=== PATIENT | male | born 1970 | race Caucasian/White ===

== ENCOUNTER → 2016-03-27 | Outpatient (CLI) | payer BC ==
[~2016-03-27] MED LIST: AMOXICILLIN 8751 TAB PO; CEPHALEXIN500 M1 PO; CITALOPRAM20 MG PO; CUBICIN 500MG500 MG IV; FLONASE NASAL S16 GM NS; LEVAQUIN 750MG750 M1 PO; MAXZIDE-25MG TA1 TAB PO; MOTRIN 400400 MG/TAB PO; MULTI VITAMINS1 TAB PO; NORCO 325 MG-51 TAB PO; SANTYL30 TP; TRIAMTERENE/HCT1 TAB PO; TURMERIC500 MG; ZESTRIL40 MG PO; tumeric
== END ==
LOC: WCC 08:46
DX: L89.892 Pressure ulcer of other site, stage 2 (principal)
CPT/HCPCS: 27510; A6197

== ENCOUNTER 2016-04-02 14:16 | Inpatient (IN) | payer BC ==
[~2016-04-02] VITALS: Ht 208.3 cm; Wt 227.2 kg
[~2016-04-02 14:16] MED LIST changes: -CUBICIN 500MG500 MG IV; -FLONASE NASAL S16 GM NS; -LEVAQUIN 750MG750 M1 PO; -MAXZIDE-25MG TA1 TAB PO; -MOTRIN 400400 MG/TAB PO; -MULTI VITAMINS1 TAB PO; -NORCO 325 MG-51 TAB PO; -SANTYL30 TP; -TURMERIC500 MG; -tumeric
[2016-04-02 15:10] VITALS: BP 109/59; PULSE 105; TEMP 98.9
[2016-04-02] MEDS ORDERED: MAXZIDE-25MG TA1 TAB PO (15:18)
[2016-04-02] MEDS ORDERED: MULTI VITAMINS1 TAB PO (15:19)
[2016-04-02] MEDS ORDERED: MOTRIN 400400 MG/TAB PO (15:19)
[2016-04-02] MEDS ORDERED: FLONASE NASAL S16 GM NS (15:19)
[2016-04-02] MEDS ORDERED: SANTYL30 TP (15:22)
[2016-04-02] MEDS ORDERED: tumeric (15:22)
[2016-04-02 17:28] LABS: BASO # 0.1 (0.0-0.2); BASO % 0.4 % (0.0-2.0); EOS # 0.2 (0.0-0.7); EOS % 1.4 % (0-4.0); GRAN # 10.9 (1.4-6.5); GRAN % 74.1 % (42.2-75.2); HEMATOCRIT 39.6 % (42.0-52.0); HEMOGLOBIN 13.4 g/dl (13.5-18.0); LYMPH # 1.9 (1.2-3.4); LYMPH % 12.9 % (20.0-51.0); MEAN CELL VOLUME 87 fl (80.0-100.0); MEAN CORPUSCULAR HEMOGLOBIN 29 pg (27.0-31.0); MEAN CORPUSCULAR HGB CONC 34 g/dl (33.0-37.0); MEAN PLATELET VOLUME 9.3 fl (7.4-10.4); MONO # 1.6 (0.1-0.6); MONO % 10.5 % (1.7-9.3); PLATELET COUNT 294 K/mm3 (130-400); RED BLOOD COUNT 4.58 M/mm3 (4.20-5.60); REDCELL DISTRIBUTION WIDTH-CV 13.5 % (11.5-14.5); WHITE BLOOD COUNT 14.8 K/mm3 (4.8-10.8)
[2016-04-02 17:41] LABS: ADJUSTED CALCIUM 9.1 mg/dL (8.4-10.2); ALBUMIN 4.1 gm/dL (3.5-5.0); BILIRUBIN,TOTAL 1.1 mg/dL (0.0-1.0); CALCIUM 9.2 mg/dL (8.4-10.2); CREATININE, serum 0.93 mg/dL (0.66-1.25); TOTAL PROTEIN 8.5 gm/dL (6.4-8.2)
[2016-04-02 18:05] VITALS: BP 114/69; PULSE 100; TEMP 99.2
[2016-04-02 21:15] VITALS: BP 127/69; BP 136/63; PULSE 76; PULSE 82; TEMP 98
[2016-04-03 02:16] VITALS: BP 105/64; PULSE 83; TEMP 98.2
[2016-04-03 05:42] VITALS: BP 124/57; PULSE 80; TEMP 98.2
[2016-04-03 06:14] LABS: PH 5 (5-8); SQUAMOUS EPITHELIAL 0-2 /hpf; URINE APPEARANCE Clear; URINE BACTERIA None Seen /hpf; URINE BILIRUBIN Negative (NEGATIVE); URINE BLOOD Negative (NEGATIVE); URINE COLOR Yellow; URINE GLUCOSE Negative (NEGATIVE); URINE KETONE Negative (NEGATIVE); URINE RBC 0-2 /hpf; URINE UROBILINOGEN Negative (NEGATIVE); URINE WBC 0-2 /hpf
[2016-04-03 07:50] LABS: C-REACTIVE PROTEIN 7.7 mg/dL (0.0-0.9); CALCIUM 8.8 mg/dL (8.4-10.2); CREATININE, serum 0.91 mg/dL (0.66-1.25); POTASSIUM 3.6 mmol/L (3.4-5.0)
[2016-04-03 08:36] LABS: BASO # 0.1 (0.0-0.2); BASO % 0.6 % (0.0-2.0); EOS # 0.4 (0.0-0.7); EOS % 4.2 % (0-4.0); GRAN # 6.3 (1.4-6.5); GRAN % 63.8 % (42.2-75.2); HEMATOCRIT 37.4 % (42.0-52.0); HEMOGLOBIN 12.3 g/dl (13.5-18.0); LYMPH # 1.7 (1.2-3.4); LYMPH % 17.5 % (20.0-51.0); MEAN CELL VOLUME 88 fl (80.0-100.0); MEAN CORPUSCULAR HEMOGLOBIN 29 pg (27.0-31.0); MEAN CORPUSCULAR HGB CONC 33 g/dl (33.0-37.0); MEAN PLATELET VOLUME 9.4 fl (7.4-10.4); MONO # 1.3 (0.1-0.6); PLATELET COUNT 314 K/mm3 (130-400); RED BLOOD COUNT 4.26 M/mm3 (4.20-5.60); REDCELL DISTRIBUTION WIDTH-CV 13.6 % (11.5-14.5); WHITE BLOOD COUNT 9.8 K/mm3 (4.8-10.8)
[2016-04-03] MEDS ORDERED: TURMERIC500 MG (08:39)
[2016-04-03 09:27] VITALS: BP 154/62; PULSE 84; TEMP 98.5
[2016-04-03 13:49] VITALS: BP 131/66; PULSE 83; TEMP 98.8
[2016-04-03] MEDS ORDERED: CUBICIN 500MG500 MG IV (16:36)
== END 2016-04-03 17:30 | disposition home or self-care (01) | DRG 872 ==
LOC: MEDICAL 14:16 → SURG 14:45
PROVIDERS: Physician Assistant
PROC: 02HV33Z Insertion of Infusion Device into Superior Vena Cava, Percutaneous Approach (ICD-10-PCS; principal; 2016-04-03)
DX: A41.9 Sepsis, unspecified organism (principal); Z68.43 Body mass index [BMI] 50.0-59.9, adult; M86.8X7 Other osteomyelitis, ankle and foot; L89.892 Pressure ulcer of other site, stage 2; I10 Essential (primary) hypertension; E66.01 Morbid (severe) obesity due to excess calories; L03.032 Cellulitis of left toe; G62.9 Polyneuropathy, unspecified; Z87.891 Personal history of nicotine dependence
CPT/HCPCS: 99223-AI; 99239; C1751; G0463; J0878; J1650; J2543; J3370; J7030; J7040; J7050

== ENCOUNTER → 2016-04-02 | Outpatient (CLI) | payer BC | LOC: WCC 13:38 | DX: L03.032 Cellulitis of left toe (principal); L89.892 Pressure ulcer of other site, stage 2 | CPT/HCPCS: G0463 ==

== ENCOUNTER 2016-04-07 11:43 | Day surgery (SDC) | payer BC ==
[~2016-04-07] VITALS: Ht 208.3 cm; Wt 240.5 kg
[~2016-04-07 11:43] MED LIST changes: +CUBICIN 500MG500 MG IV; +FLONASE NASAL S16 GM NS; +MAXZIDE-25MG TA1 TAB PO; +MOTRIN 400400 MG/TAB PO; +MULTI VITAMINS1 TAB PO; +SANTYL30 TP; +TURMERIC500 MG; +tumeric
[2016-04-07] MEDS ORDERED: CUBICIN 500MG500 MG IV (13:13)
[2016-04-07 13:21] VITALS: BP 121/55; PULSE 81; TEMP 98.1
[2016-04-07 16:40] VITALS: BP 102/48; PULSE 71; TEMP 98
[2016-04-07 16:55] VITALS: BP 112/57; PULSE 70
[2016-04-07 17:10] VITALS: BP 106/59; PULSE 79
[2016-04-07 17:25] VITALS: BP 113/56; PULSE 90
[2016-04-07] MEDS ORDERED: NORCO 325 MG-51 TAB PO (17:48)
== END 2016-04-07 18:15 | disposition home or self-care (01) ==
LOC: SDCO 11:43 → MEDICAL 17:30 → EDSTATUS 17:30 → SDCO 18:15
DX: M86.8X7 Other osteomyelitis, ankle and foot (principal); L97.529 Non-pressure chronic ulcer of other part of left foot with unspecified severity; Z87.891 Personal history of nicotine dependence
CPT/HCPCS: J0690; J1644; J2250; J2704; J3010; J7120

== ENCOUNTER 2016-04-10 10:33 | Day surgery (SDC) | payer BC ==
[~2016-04-10] VITALS: Ht 208.3 cm; Wt 241.8 kg
[~2016-04-10 10:33] MED LIST changes: +NORCO 325 MG-51 TAB PO
[2016-04-10 11:22] VITALS: BP 170/81; PULSE 83; TEMP 97.6
[2016-04-10 14:00] VITALS: BP 125/54; PULSE 71
[2016-04-10 14:15] VITALS: BP 112/42; PULSE 69
[2016-04-10 14:30] VITALS: BP 131/59; PULSE 66
[2016-04-10] MEDS ORDERED: LEVAQUIN 750MG750 M1 PO (15:23)
== END 2016-04-10 14:40 | disposition home or self-care (01) ==
LOC: SDCO 10:33
DX: M86.8X7 Other osteomyelitis, ankle and foot (principal)
CPT/HCPCS: J0670; J2250; J2704; J2765; J3010; J7030

== ENCOUNTER → 2017-07-26 | Outpatient (CLI) | payer BC ==
[~2017-07-26] MED LIST changes: +LEVAQUIN 750MG750 M1 PO
== END ==
LOC: COL.RAD 14:10
DX: M24.375 Pathological dislocation of left foot, not elsewhere classified (principal); M19.072 Primary osteoarthritis, left ankle and foot; Z89.422 Acquired absence of other left toe(s)

== ENCOUNTER 2017-08-11 09:45 | Inpatient (IN) | payer BC ==
[2017-08-11] VITALS (7 sets, daily range): BP systolic 101–112; BP diastolic 37–82; PULSE 95–115; TEMP 98.3–101.6
[~2017-08-11] VITALS: Ht 208.3 cm; Wt 227.2 kg
[2017-08-11] MEDS ORDERED: VOLTAREN 75 DR75 MG PO (10:01)
[2017-08-11 10:27] LABS: BASO % 0.2 % (0.0-2.0); EOS # 0.1 (0.0-0.7); EOS % 0.6 % (0-4.0); GRAN # 12.6 (1.4-6.5); HEMOGLOBIN 12.3 g/dl (13.5-18.0); LYMPH # 0.6 (1.2-3.4); LYMPH % 4.3 % (20.0-51.0); MEAN CELL VOLUME 99 fl (80.0-100.0); MEAN CORPUSCULAR HEMOGLOBIN 34 pg (27.0-31.0); MEAN CORPUSCULAR HGB CONC 35 g/dl (33.0-37.0); MEAN PLATELET VOLUME 9.7 fl (7.4-10.4); MONO # 0.5 (0.1-0.6); MONO % 3.9 % (1.7-9.3); PLATELET COUNT 231 K/mm3 (130-400); RED BLOOD COUNT 3.58 M/mm3 (4.20-5.60); REDCELL DISTRIBUTION WIDTH-CV 13.7 % (11.5-14.5)
[2017-08-11 10:28] LABS: HEMATOCRIT 35.6 % (42.0-52.0)
[2017-08-11 10:39] LABS: ALBUMIN 3.6 gm/dL (3.5-5.0); BILIRUBIN,TOTAL 0.9 mg/dL (0.0-1.0); CALCIUM 8.9 mg/dL (8.4-10.2); CREATININE, serum 1.19 mg/dL (0.66-1.25); POTASSIUM 3.6 mmol/L (3.4-5.0); TOTAL PROTEIN 7.3 gm/dL (6.4-8.2)
[2017-08-12] VITALS (7 sets, daily range): BP systolic 91–159; BP diastolic 41–72; PULSE 89–110; TEMP 98.3–99.9
[2017-08-12 06:39] LABS: HEMOGLOBIN 10.8 g/dl (13.5-18.0); MEAN CELL VOLUME 100 fl (80.0-100.0); MEAN CORPUSCULAR HEMOGLOBIN 34 pg (27.0-31.0); MEAN CORPUSCULAR HGB CONC 34 g/dl (33.0-37.0); MEAN PLATELET VOLUME 9.8 fl (7.4-10.4); PLATELET COUNT 237 K/mm3 (130-400); REDCELL DISTRIBUTION WIDTH-CV 13.6 % (11.5-14.5)
[2017-08-12 06:40] LABS: HEMATOCRIT 31.9 % (42.0-52.0)
[2017-08-12 06:54] LABS: CALCIUM 8.6 mg/dL (8.4-10.2); CREATININE, serum 1.13 mg/dL (0.66-1.25); POTASSIUM 3.2 mmol/L (3.4-5.0)
[2017-08-12 08:54] LABS: BAND 9 % (0-10); BASOPHIL 1 % (0-2); EOSINOPHIL 2 % (0-4); LYMPHOCYTE 9 % (20.0-51.0); NEUTROPHILS 77 % (42.0-75.2); PLATELET ESTIMATE NORMAL (NORMAL)
[2017-08-13 04:15] VITALS: BP 137/54; PULSE 95; TEMP 98.3
[2017-08-13 07:04] LABS: MEAN CELL VOLUME 101 fl (80.0-100.0); MEAN CORPUSCULAR HGB CONC 33 g/dl (33.0-37.0); MEAN PLATELET VOLUME 9.5 fl (7.4-10.4); PLATELET COUNT 212 K/mm3 (130-400); RED BLOOD COUNT 2.96 M/mm3 (4.20-5.60); REDCELL DISTRIBUTION WIDTH-CV 13.7 % (11.5-14.5)
[2017-08-13 07:13] LABS: HEMATOCRIT 29.9 % (42.0-52.0); HEMOGLOBIN 9.9 g/dl (13.5-18.0); MEAN CORPUSCULAR HEMOGLOBIN 33 pg (27.0-31.0)
[2017-08-13 07:18] LABS: CALCIUM 8.3 mg/dL (8.4-10.2); CREATININE, serum 0.89 mg/dL (0.66-1.25); POTASSIUM 3.5 mmol/L (3.4-5.0)
[2017-08-13 07:45] VITALS: BP 124/52; PULSE 89; TEMP 98.7
[2017-08-13 09:46] LABS: BAND 3 % (0-10); LYMPHOCYTE 11 % (20.0-51.0); NEUTROPHILS 80 % (42.0-75.2)
[2017-08-13 09:48] LABS: PLATELET ESTIMATE NORMAL (NORMAL)
[2017-08-13 11:37] VITALS: BP 109/72; PULSE 87; TEMP 99.4
[2017-08-13 15:32] VITALS: BP 133/64; PULSE 96; TEMP 99.6
[2017-08-13 19:52] VITALS: BP 149/69; PULSE 98; TEMP 98.2
[2017-08-13 23:40] VITALS: BP 134/63; PULSE 94; TEMP 98.2
[2017-08-14 04:03] VITALS: BP 135/68; PULSE 93; TEMP 98.2
[2017-08-14 06:55] LABS: BASO % 0.3 % (0.0-2.0); EOS # 0.3 (0.0-0.7); EOS % 3.8 % (0-4.0); GRAN # 4.6 (1.4-6.5); GRAN % 65.5 % (42.2-75.2); LYMPH # 1.2 (1.2-3.4); LYMPH % 17.4 % (20.0-51.0); MEAN CELL VOLUME 101 fl (80.0-100.0); MEAN CORPUSCULAR HGB CONC 33 g/dl (33.0-37.0); MEAN PLATELET VOLUME 9.4 fl (7.4-10.4); MONO # 0.9 (0.1-0.6); MONO % 12.1 % (1.7-9.3); PLATELET COUNT 216 K/mm3 (130-400); RED BLOOD COUNT 2.76 M/mm3 (4.20-5.60); REDCELL DISTRIBUTION WIDTH-CV 13.8 % (11.5-14.5)
[2017-08-14 07:04] LABS: CALCIUM 8.5 mg/dL (8.4-10.2); CREATININE, serum 0.88 mg/dL (0.66-1.25); POTASSIUM 3.2 mmol/L (3.4-5.0)
[2017-08-14 07:24] LABS: HEMOGLOBIN 9.3 g/dl (13.5-18.0); MEAN CORPUSCULAR HEMOGLOBIN 34 pg (27.0-31.0)
[2017-08-14 07:40] VITALS: BP 136/69; PULSE 85; TEMP 97.8
[2017-08-14 12:22] VITALS: BP 99/67; PULSE 77; TEMP 98.3
[2017-08-14 15:29] VITALS: BP 136/65; PULSE 89; TEMP 99.1
[2017-08-14 19:49] VITALS: BP 142/78; PULSE 96; TEMP 98.3
[2017-08-15] VITALS (7 sets, daily range): BP systolic 123–150; BP diastolic 62–89; PULSE 63–110; TEMP 97.7–99
[2017-08-16 03:54] VITALS: BP 133/72; PULSE 86; TEMP 98.2
[2017-08-16 08:06] VITALS: BP 134/65; PULSE 85; TEMP 98.1
[2017-08-16 09:54] LABS: CALCIUM 8.9 mg/dL (8.4-10.2); CREATININE, serum 0.75 mg/dL (0.66-1.25); POTASSIUM 3.8 mmol/L (3.4-5.0)
[2017-08-16] MEDS ORDERED: CUBICIN 500MG500 MG IV (11:40)
[2017-08-16 11:49] VITALS: BP 141/68; PULSE 73; TEMP 98.3
[2017-08-16 15:48] VITALS: BP 116/50; PULSE 79; TEMP 98.3
== END 2017-08-16 17:30 | disposition home or self-care (01) | DRG 872 ==
LOC: COL.ER 09:45 → SURG 11:21
PROVIDERS: Nurse Practitioner; Nurse Practitioner Family; Physician Assistant
PROC: 02HV33Z Insertion of Infusion Device into Superior Vena Cava, Percutaneous Approach (ICD-10-PCS; principal; 2017-08-16)
DX: A41.01 Sepsis due to Methicillin susceptible Staphylococcus aureus (principal); L03.116 Cellulitis of left lower limb; Z68.43 Body mass index [BMI] 50.0-59.9, adult; L97.422 Non-pressure chronic ulcer of left heel and midfoot with fat layer exposed; M86.172 Other acute osteomyelitis, left ankle and foot; M14.672 Charcot's joint, left ankle and foot; E66.01 Morbid (severe) obesity due to excess calories; I10 Essential (primary) hypertension; Z89.412 Acquired absence of left great toe; Z89.411 Acquired absence of right great toe; F17.210 Nicotine dependence, cigarettes, uncomplicated; B95.61 Methicillin susceptible Staphylococcus aureus infection as the cause of diseases classified elsewhere; G62.9 Polyneuropathy, unspecified
CPT/HCPCS: 99223-AI; 99232-AI; 99233-AI; 99239; A9503; C1751; G9654; J0690; J0692; J0878; J1650; J2270; J2543; J2704; J2765; J3370; J7030; J7040; J7120

== ENCOUNTER → 2017-10-11 | Outpatient (CLI) | payer BC ==
[~2017-10-11] MED LIST changes: +VOLTAREN 75 DR75 MG PO
[2017-10-11 12:33] LABS: BASO # 0.2 (0.0-0.2); BASO % 1.7 % (0.0-2.0); EOS # 1.1 (0.0-0.7); EOS % 11.6 % (0-4.0); GRAN # 5.3 (1.4-6.5); HEMOGLOBIN 11.7 g/dl (13.5-18.0); LYMPH % 21.3 % (20.0-51.0); MEAN CELL VOLUME 93 fl (80.0-100.0); MEAN CORPUSCULAR HEMOGLOBIN 31 pg (27.0-31.0); MEAN CORPUSCULAR HGB CONC 33 g/dl (33.0-37.0); MEAN PLATELET VOLUME 10.7 fl (7.4-10.4); MONO # 0.8 (0.1-0.6); MONO % 8.3 % (1.7-9.3); PLATELET COUNT 314 K/mm3 (130-400); RED BLOOD COUNT 3.79 M/mm3 (4.20-5.60); REDCELL DISTRIBUTION WIDTH-CV 12.5 % (11.5-14.5)
[2017-10-11 12:38] LABS: HEMATOCRIT 35.2 % (42.0-52.0)
[2017-10-11 13:02] LABS: ALBUMIN 3.3 gm/dL (3.5-5.0); BILIRUBIN,TOTAL 0.2 mg/dL (0.0-1.0); C-REACTIVE PROTEIN 1.4 mg/dL (0.0-0.9); CALCIUM 8.9 mg/dL (8.4-10.2); CREATININE, serum 0.66 mg/dL (0.66-1.25); POTASSIUM 4.4 mmol/L (3.4-5.0); TOTAL PROTEIN 6.8 gm/dL (6.4-8.2)
== END ==
LOC: ZCOL.LAB 11:49
PROVIDERS: Orthopaedic Surgery
DX: L97.521 Non-pressure chronic ulcer of other part of left foot limited to breakdown of skin (principal); L08.9 Local infection of the skin and subcutaneous tissue, unspecified

== ENCOUNTER 2018-11-17 09:33 | Outpatient (CLI) | payer BC ==
[~2018-11-17] VITALS: Ht 208.3 cm; Wt 227.0 kg
[2018-11-17] MEDS ORDERED: DIFLUCAN200 MG PO (10:00)
[2018-11-17] MEDS ORDERED: MULTI VITAMINS1 TAB PO (10:04)
[2018-11-17] MEDS ORDERED: B-121000 MCG PO (10:05)
[2018-11-17] MEDS ORDERED: VANCO 1.51.5 GM/250 IV (10:07)
[2018-11-17] MEDS ORDERED: ZOSYN 4 GM-0.51 PD1 IV (10:07)
[2018-11-17 10:15] VITALS: BP 126/69; PULSE 73; TEMP 98.1
[2018-11-17 11:37] LABS: BASO # 0.1 (0.0-0.2); BASO % 1.2 % (0.0-2.0); EOS # 0.6 (0.0-0.7); EOS % 4.9 % (0-4.0); GRAN # 8.4 (1.4-6.5); GRAN % 69.5 % (42.2-75.2); HEMOGLOBIN 11.2 g/dl (13.5-18.0); LYMPH # 1.8 (1.2-3.4); LYMPH % 15.1 % (20.0-51.0); MEAN CELL VOLUME 82 fl (80.0-100.0); MEAN CORPUSCULAR HEMOGLOBIN 26 pg (27.0-31.0); MEAN CORPUSCULAR HGB CONC 32 g/dl (33.0-37.0); MEAN PLATELET VOLUME 9.8 fl (7.4-10.4); MONO % 7.9 % (1.7-9.3); PLATELET COUNT 339 K/mm3 (130-400); RED BLOOD COUNT 4.32 M/mm3 (4.20-5.60); REDCELL DISTRIBUTION WIDTH-CV 14.9 % (11.5-14.5)
[2018-11-17 11:40] LABS: ALBUMIN 3.7 gm/dL (3.5-5.0); BILIRUBIN,TOTAL 0.4 mg/dL (0.0-1.0); C-REACTIVE PROTEIN 2.8 mg/dL (0.0-0.9); CREATININE, serum 0.89 (0.66-1.25); POTASSIUM 4.3 mmol/L (3.4-5.0); TOTAL PROTEIN 7.9 gm/dL (6.4-8.2)
[2018-11-17 11:41] LABS: HEMATOCRIT 35.6 % (42.0-52.0)
[2018-11-17 12:10] LABS: ERYTHROCYTE SEDIMENTATION RATE 35 mm/hr (0-15)
== END 2018-11-17 13:56 | disposition home or self-care (01) ==
LOC: EUO 09:33
PROVIDERS: Internal Medicine
DX: Z45.2 Encounter for adjustment and management of vascular access device (principal); M86.172 Other acute osteomyelitis, left ankle and foot
CPT/HCPCS: C1751; C1892; J2543; J3370; J7050

== ENCOUNTER 2019-07-17 08:32 | Day surgery (SDC) | payer BC ==
[~2019-07-17] VITALS: Ht 208.3 cm; Wt 234.6 kg
[~2019-07-17 08:32] MED LIST changes: +B-121000 MCG PO; +DIFLUCAN200 MG PO; +VANCO 1.51.5 GM/250 IV; +ZOSYN 4 GM-0.51 PD1 IV
[2019-07-17 12:56] VITALS: BP 133/65; PULSE 80; TEMP 98.3
[2019-07-17] MEDS ORDERED: NATURAL POTASS595 MG PO (13:03)
[2019-07-17] MEDS ORDERED: CALCIUM 600MG+D1 TAB PO (13:03)
--- NOTE | 2019-07-17 13:07 | NUR ---
CALLED PATIENT AT 0530 BY [employer] DUE TO EQUIPMENT ERROW. PATIENT ARRIVED AT 0900- DUE TO FURTHER DELAY PROCEDURE MOVED BACK TO 1:30. ADMISSION COMPLETE AND PATIENT READY FOR SURGERY.
[2019-07-17 14:25] VITALS: BP 126/76; PULSE 79
--- NOTE | 2019-07-17 14:25 | NUR ---
TO RM 7 PER CART FROM ENDOSCOPY. ALERT ORIENTED X3, TALKING WITH STAFF. DENIES PAIN OR DISCOMFORT. RECEIVED WATER, GRAPE JUICE AND MUFFIN.
[2019-07-17 14:40] VITALS: BP 109/59; PULSE 81
--- NOTE | 2019-07-17 14:40 | NUR ---
DR SALES INTO TALK WITH PATIENT ATE 100% DISCONTINUED IV AND INT
--- NOTE | 2019-07-17 15:00 | NUR ---
RECEIVED DISCHARGE INSTRUCTIONS AND VERBALIZED UNDERSTANDING.
--- NOTE | 2019-07-17 15:08 | NUR ---
DISCHARGED PER WC BY NURSING STAFF TO PRIVATE CAR IN CARE OF RONAK.
== END 2019-07-17 15:14 | disposition home or self-care (01) ==
LOC: SDCO 08:32
DX: K29.40 Chronic atrophic gastritis without bleeding (principal); K44.9 Diaphragmatic hernia without obstruction or gangrene; E53.8 Deficiency of other specified B group vitamins; D64.9 Anemia, unspecified; K63.5 Polyp of colon; K64.8 Other hemorrhoids; K64.4 Residual hemorrhoidal skin tags; I27.20 Pulmonary hypertension, unspecified; I08.1 Rheumatic disorders of both mitral and tricuspid valves; I10 Essential (primary) hypertension; F17.210 Nicotine dependence, cigarettes, uncomplicated; E66.9 Obesity, unspecified; Z68.43 Body mass index [BMI] 50.0-59.9, adult; G62.9 Polyneuropathy, unspecified; G89.29 Other chronic pain; F32.9 Major depressive disorder, single episode, unspecified; M14.679 Charcot's joint, unspecified ankle and foot; Z79.899 Other long term (current) drug therapy; Z87.39 Personal history of other diseases of the musculoskeletal system and connective tissue; Z83.79 Family history of other diseases of the digestive system
CPT/HCPCS: J2704; J3010; J7030

== ENCOUNTER 2019-09-02 21:52 | Emergency (ER) | payer BC ==
[~2019-09-02] VITALS: Ht 208.3 cm; Wt 234.1 kg
[~2019-09-02 21:52] MED LIST changes: +CALCIUM 600MG+D1 TAB PO; +NATURAL POTASS595 MG PO
[2019-09-02 23:32] LABS: ALBUMIN 4.2 gm/dL (3.5-5.0); BILIRUBIN,TOTAL 0.4 mg/dL (0.0-1.0); C-REACTIVE PROTEIN 2.8 mg/dL (0.0-0.9); CALCIUM 9.2 mg/dL (8.4-10.2); TOTAL PROTEIN 8.2 gm/dL (6.4-8.2)
[2019-09-02 23:33] LABS: BASO # 0.1 (0.0-0.2); BASO % 0.7 % (0.0-2.0); EOS # 0.8 (0.0-0.7); EOS % 4.2 % (0-4.0); GRAN % 73.6 % (42.2-75.2); HEMATOCRIT 37.2 % (42.0-52.0); HEMOGLOBIN 11.8 g/dl (13.5-18.0); LYMPH # 2.2 (1.2-3.4); LYMPH % 12.5 % (20.0-51.0); MEAN CELL VOLUME 81 fl (80.0-100.0); MEAN CORPUSCULAR HEMOGLOBIN 26 pg (27.0-31.0); MEAN CORPUSCULAR HGB CONC 32 g/dl (33.0-37.0); MEAN PLATELET VOLUME 10.2 fl (7.4-10.4); MONO # 1.5 (0.1-0.6); MONO % 8.2 % (1.7-9.3); PLATELET COUNT 372 K/mm3 (130-400)
[2019-09-02 23:59] LABS: ERYTHROCYTE SEDIMENTATION RATE 37 mm/hr (0-15)
[2019-09-03 06:01] VITALS: TEMP 98.1
[2019-09-03 08:45] VITALS: BP 118/79; PULSE 81
== END 2019-09-03 08:50 | disposition short-term general hospital (02) ==
LOC: COL.ER 21:52
PROVIDERS: Physician Assistant
DX: L03.116 Cellulitis of left lower limb (principal); I10 Essential (primary) hypertension; M14.672 Charcot's joint, left ankle and foot; E66.01 Morbid (severe) obesity due to excess calories; F17.210 Nicotine dependence, cigarettes, uncomplicated; Z89.412 Acquired absence of left great toe; Z88.1 Allergy status to other antibiotic agents
CPT/HCPCS: J7030

== ENCOUNTER 2020-03-05 12:00 | Day surgery (SDC) | payer BC ==
[~2020-03-05] VITALS: Ht 208.3 cm; Wt 230.2 kg
[2020-03-05 12:29] VITALS: BP 131/65; PULSE 91; TEMP 98
[2020-03-05] MEDS ORDERED: IRON TABLETS325 MG PO (12:40)
[2020-03-05] MEDS ORDERED: VITAMIN C500 MG PO (12:41)
[2020-03-05] MEDS ORDERED: DOXYCYCLINE 10100 MG PO (12:41)
[2020-03-05] MEDS ORDERED: FLOMAX 0.40.4 MG/CAP PO (12:41)
[2020-03-05] MEDS ORDERED: CIPRO 500MG TA500 MG PO (12:42)
[2020-03-05] MEDS ORDERED: CRANBERRY 100 M1 SGL PO (12:42)
[2020-03-05 14:50] VITALS: BP 134/65; PULSE 89; TEMP 97.7
--- NOTE | 2020-03-05 14:50 | NUR ---
BEDSIDE CYSTOSCOPY COMPLETE. VERBAL ORDER TO SET UP FOLLOW UP FOR 1 MONTH. OFFICE CALLED AND SET UP FOR 04/01/20 AT 1000. PATIENT ASKING WHEN HE CAN GO HOME.
--- NOTE | 2020-03-05 15:00 | NUR ---
AMBULATED TO BATHROOM AND DRESSED AFTER RETURNING TO .
--- NOTE | 2020-03-05 15:10 | NUR ---
RECEIVED DISCHARGE INSTRUCTIONS AND VERBALIZED UNDERSTANDING.
--- NOTE | 2020-03-05 15:13 | NUR ---
DISCHARGED WITH NURSING STAFF. PATIENT PERFERED TO AMBULATE OUT. PICKED UP BY .
== END 2020-03-05 15:21 | disposition home or self-care (01) ==
LOC: SDCO 12:00
DX: N39.0 Urinary tract infection, site not specified (principal); N35.919 Unspecified urethral stricture, male, unspecified site; D64.9 Anemia, unspecified; I10 Essential (primary) hypertension; E66.01 Morbid (severe) obesity due to excess calories; Z88.8 Allergy status to other drugs, medicaments and biological substances